=== PATIENT | female | born 2000 | race Caucasian/White ===

== ENCOUNTER 2019-03-05 22:33 | Emergency (ER) | payer SELFPAY ==
[~2019-03-05 22:33] MED LIST: NO ROUTINE MEDS; PRED20TA6 PO
--- NOTE | 2019-03-05 22:39 | ER Report ---
History and Physical Time Seen By MD: 22:34 HPI/ROS CHIEF COMPLAINT: Insect bites HISTORY OF PRESENT ILLNESS: 18-year-old female with approximately 12 insect bites on the medial aspect of her right thigh. There itching and burning intensely. She is trying topical hydrocortisone 1% and ibuprofen without relief. She notes they've somewhat developed blisters. Allergies: Coded Allergies: No Known Drug Allergies (Verified , 03/05/19) Home Meds Active Scripts Prednisone (PREDNISONE) 20 Mg Tablet, 20 MG PO QDAY for prevention of allergic reactio, #5 Prov:ANGELIQUE HORN DO 03/05/19 Prednisone (PREDNISONE) 20 Mg Tablet, 40 MG PO QDAY, #10 TAB 0 Refills Prov:STUART BOLAÑOS MD 06/05/17 Reported Medications [No Routine Meds] No Conflict Check, 0 Refills 06/15/11 Reviewed Nurses Notes: Yes Old Medical Records Reviewed: Yes Hx Smoking: No Constitutional Vital Sign - Last 24 Hours 03/05/19 22:55 Temp 98.5 Pulse 108 Resp 14 B/P (MAP) 124/78 Pulse Ox 96 O2 Delivery Room Air Physical Exam General appearance: Alert no distress. Respiratory: Chest is non tender, lungs are clear to auscultation. Cardiac: Regular rate and rhythm Extremities: Examination of the right leg reveals numerous vesiculated erythematous 1 cm spots on the right medial thigh. They are not giving the appearance of gross secondary infection. There is some weeping and vesiculation on the tops of some of them. Distal neurovascular functions intact DIFFERENTIAL DIAGNOSIS: After history and physical exam differential diagnosis was considered for insect bites, allergic reaction, contact dermatitis Medical Decision Making ED Course/Re-evaluation ED Course Patient was admitted to an examination room. H&P was done. The differential diagnoses was considered. Patient was medicated with prednisone orally. She is advised to take Benadryl and ibuprofen as needed. She's given additional 5 days of prednisone 20 mg per day for her allergic reaction to insect bites. Decision to Disposition Date: Mar 05, 2019 Decision to Disposition Time: 22:54 Depart Departure Latest Vital Signs Vital Signs Date Time Temp Pulse Resp B/P (MAP) Pulse Ox O2 Delivery O2 Flow Rate FiO2 03/05/19 22:55 98.5 108 14 124/78 96 Room Air Impression: Primary Impression: Insect bites Additional Impression: Allergic reaction Condition: Improved Disposition: HOME OR SELF-CARE Referrals: JOE PASTRANA MD (PCP) New Scripts Prednisone (PREDNISONE) 20 Mg Tablet 20 MG PO QDAY for prevention of allergic reactio, #5 Prov: ANGELIQUE HORN DO 03/05/19 Patient Instructions: General Allergic Reaction (ED), Insect Bite or Sting (ED) Additional Instructions: Take ibuprofen 200 mg 3 tablets 3 times a day Take Benadryl 25 mg as needed for itching or burning Follow-up with primary care if unimproved in 3-5 days Problem Qualifiers Primary Impression: Insect bites Encounter type: initial encounter Site of insect bite: thigh Laterality: right Qualified Codes: S70.361A - Insect bite (nonvenomous), right thigh, initial encounter; W57.XXXA - Bitten or stung by nonvenomous insect and other nonvenomous arthropods, initial encounter Additional Impression: Allergic reaction Encounter type: initial encounter Qualified Codes: T78.40XA - Allergy, unspecified, initial encounter ANGELIQUE HORN DO Mar 05, 2019 22:39
[2019-03-05] MEDS ORDERED: predniSONE 20 MG TAB PO ONE (22:45)
[2019-03-05 22:55] VITALS: BP 124/78
[2019-03-05] MEDS ORDERED: PRED20TA6 PO (23:00)
== END 2019-03-05 23:00 | disposition home or self-care (01) ==
LOC: ER 22:47
DX: S70.361A Insect bite (nonvenomous), right thigh, initial encounter (principal); T78.40XA Allergy, unspecified, initial encounter
CPT/HCPCS: 99283; J7512